=== PATIENT | female | born 1970 | race Caucasian/White ===

== ENCOUNTER 2017-04-05 06:51 | Day surgery (SDC) | payer OTHER, MEDICAID ==
[~2017-04-05] VITALS: Ht 167.6 cm; Wt 91.4 kg
[2017-04-05] VITALS (15 sets, daily range): BP systolic 133–210; BP diastolic 75–123; PULSE 76–101; RESP 1–17; O2SAT 65–99
[2017-04-05] MEDS: Clindamycin Inj 900 MG in IV Premix 1 EACH IV SCH ×2 (06:00→09:05)
[~2017-04-05 06:51] MED LIST: Bupivacaine Liposome 1.3% 20 mL Inj INFILTRATE ONE; FLUO40CA PO; KLO5T PO; Lactated Ringer's 1,000 ML IV ONE; OXCA300T51 PO; PRAZ2CAP2 PO; QUET400T PO; haldol; maxalt
[2017-04-05] MEDS ORDERED: Propofol 10,000 mCg/mL 20 mL Inj ONE (06:52)
[2017-04-05] MEDS ORDERED: Rocuronium 10 mg/mL 5 mL Inj ONE (06:52)
[2017-04-05] MEDS ORDERED: Ondansetron 2 mg/mL 2 mL Inj ONE (06:52)
[2017-04-05] MEDS ORDERED: Ketamine 10 mg/mL 20 mL Inj ONE (06:52)
[2017-04-05] MEDS ORDERED: fentaNYL-PF 50 mCg/mL 2 mL Inj ONE (06:52)
[2017-04-05] MEDS ORDERED: HYDROmorphone 1 mg/mL Inj ONE (06:52)
[2017-04-05] MEDS ORDERED: Dexamethasone 4 mg/mL Inj ONE (06:52)
[2017-04-05] MEDS ORDERED: Lactated Ringer's 1,000 ML IV ONE (07:29)
[2017-04-05] MEDS ORDERED: Lactated Ringer's 500 ML IV PRN (07:54)
[2017-04-05] MEDS ORDERED: Lactated Ringer's 1,000 ML IV SCH (07:54)
--- NOTE | 2017-04-05 07:54 | PCM.HPANE ---
Patient Data Surgeon Admitting Provider: Attending Provider:Sina Beckham MD Primary Care Physician:Raffy Moreland MD Other Provider:Marissa Stewartingham Anesthesia Reason for Visit Ventral Incisional Hernia VENTRAL INCISIONAL HERNIA Ht/WT & BMI Height (Feet): 5 Height (Inches): 6.00 Weight (Kilograms): 84.820 Body Mass Index 30.00 Allergies Coded Allergies: Penicillins (Verified Allergy, Unknown, 04/01/16) acetaminophen (Verified Allergy, Unknown, 04/01/16) codeine (Verified Allergy, Unknown, 04/01/16) divalproex sodium (Verified Allergy, Unknown, EXCESSIVE DROWSINESS, 04/01/16 ) hydrocodone (Verified Allergy, Unknown, 03/31/16) Past Anesthesia History Anesthesia History: Denies:: Abnormal Airway, Anesthesia Reactions, Difficult Intubation, Fam Anesthesia Reaction, Fam Malignant Hypertherm, Malignant Hyperthermia Diabetes History Hx Diabetes?: No MRSA MRSA: No Medications Hypertension Medication: No Home Meds Incl Beta Gloria: No Reported Medications [maxalt] No Conflict CheckUnknown Dose PRN migraine headaches 03/26/17 Prazosin 2 Mg Capsule2 Mg PO BID 03/26/17 Quetiapine Fumarate (Seroquel)400 Mg [id number] Mg PO BID Ref 0 03/26/17 Oxcarbazepine (Oxtellar Xr)300 Mg Tab.er.24h1,200 Mg PO HS 03/26/17 [haldol] No Conflict Check1 Mg DAILY MR X1 03/26/17 Fluoxetine 40 Mg [id number] Mg PO DAILY Ref 0 03/26/17 Clonazepam 0.5 Mg Tablet0.5 Mg PO TID PRN For Anxiety Ref 0 03/26/17 History History of ENT Problems?: No HEENT History: Denies:: Abnormal Airway Cataracts Difficult Intubation Dysphagia Glaucoma Hearing Problem Sinus Problem Denture Type: Full- Upper Full- Lower Teeth Condition: No Teeth Hx of Heart Problems?: No Cardiovascular History: Denies:: AICD Atrial Fibrillation Cardiac Surgery Chest Pain Congestive Heart Failure Coronary Artery Disease Edema Heart Murmur Hypertension Irregular Heartbeat Pacemaker Valvular Heart Disease Hx of Respiratory Problem?: Yes Respiratory History: Positive for:: Asthma (has had in past) Use of Inhalers / NEBS Denies:: COPD Emphysema Oxygen Administration Pneumonia Tuberculosis Use of C-PAP Machine (sleep study positive- cannot tolerate CPAP) Hx Neurologic Problems?: No Neurological History: Positive for:: Headaches (treats with Maxalt- occur every few months) Denies:: CVA Multiple Sclerosis Parkinson's Disease Seizures Hx of GI Problems?: Yes Other GI Pertinent History: ventral hernia current admission problem hx of sleeve gastrectomy, laparotomy for release of adhesions Hx of Problems?: No Genitourinary History: Denies:: Kidney Stones Urinary Tract Infection (frequent not current ) Female Hx: Denies:: Problems with Breasts? Skin History: Denies:: History Skin Disorders? Pressure Ulcers Hx Musculoskeletal Problems?: No Musculoskeletal History: Denies:: Degenerative Joint Fibromyalgia Joint Replacement Musculoskeletal Trauma Myasthenia Gravis Osteoarthritis Hx of Psycho/Social Problems?: Yes Psycho Social History: Positive for:: Anxiety (PTSD) Hx Depression Hx Surgeries?: Yes (HYSTERECTOMY, , APPY, GASTRIC SLEEVE) Hx Any Other Health Problems?: Yes Other History: Denies:: Cancer Thyroid Disease History Blood Transfusions: Positive for:: Accept Blood Products? 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) Smoking Status: Heavy Tobacco Smoker Have You Smoked inLast 12 mo: No (quit Mar 04, 2017- less than 1/2 pack day) Stop/Bang Treated for Sleep Apnea?: No Do You Have a CPAP Machine?: No S-Snoring: Do You Snore Loudly: No T-Tired: feel tired, fatigued: No O-Obsered: Observed not breath: No P-Blood Pressure: treated: No B- Body Mass Index > 35 kg/m2: No A- Age over 50: No N- Neck Large Circumference: No G- Gender Male: No CODIE Total Score: 0 CODIE Risk Assessment: Low Risk, <3 Yes Risk Assessment Category Category 1A: Patient has history of documented sleep apnea, and HAS NOT received any narcotic, sedative or anesthesia administration during this stay. Category 1B: Patient has history of documented sleep apnea, and HAS received any narcotic , sedative or anesthesia administration during this stay Category 2: Patient has SUSPECTED Obstructive Sleep Apnea, and HAS received any narcotic , sedative or anesthesia administration during this stay. Category 3: Patient has SUSPECTED Obstructive Sleep Apnea and HAS NOT received narcotic, sedative or anesthesia administration during this stay. Category 4: Outpatient in Procedural Areas with known sleep apnea or who screen positive for High Risk via the STOP/BANG questionnaire. Exam Exam Vital Signs Vital Signs Date Time Temp Pulse Resp B/P Pulse Ox O2 Delivery O2 Flow Rate FiO2 04/05/17 07:30 36 76 17 133/75 97 Room Air General Appearance: Alert, Oriented X3, Cooperative, No Acute Distress HEENT/AIRWAY: MP 2 Lungs: Clear to Auscultation, Normal Air Movement Heart: Exam Unremarkable, Regular Rate/Rhythm, No Murmurs/Rubs/Gallops Meds/Labs/Diagnostics Admission Meds Current Medications Lactated Ringer's (Lr) 1,000 ml @ ud STK-MED ONCE IV Last administered on 04/05t 07:29; Start 04/05/17 at 07:29; Stop 04/05/17 at 07:30; Status DC Plan Impression Patient chart reviewed, patient interviewed and anesthestic plan with risks, benefits, and alternatives discussed, and informed consent obtained. NPO per Anesth. Guidelines: Yes (hx substance abuse) ASA Physical Status: ASA3 Severe Disease Anesthetic Plan: GA Bene/Risks/Altern/Consents: Yes HP Complete Prior to Induction: Yes Joe Huntley MD Apr 05, 2017 07:54
[2017-04-05] MEDS ORDERED: EPHEDrine Sulfate 50 mg/mL Inj IVPUSH PRN (07:55)
[2017-04-05] MEDS ORDERED: MetoCLOpramide 5 mg/mL 2 mL Inj IVPUSH PRN ×2 (07:55→11:35)
[2017-04-05] MEDS ORDERED: Phenylephrine 10,000 mCg/mL Inj IVPUSH PRN (07:55)
[2017-04-05] MEDS ORDERED: Ondansetron 2 mg/mL 2 mL Inj IVPUSH PRN ×2 (07:55→11:35)
[2017-04-05] MEDS ORDERED: Dexamethasone 4 mg/mL Inj IVPUSH PRN (07:55)
[2017-04-05] MEDS ORDERED: Bupivacaine-MPF 0.5% 30 mL Inj INFILTRATE ONE (09:05)
--- NOTE | 2017-04-05 11:27 | PCM.SURGOP ---
Surgical Operative Report Date of Service: Apr 05, 2017 Pre Operative Diagnosis Incarcerated ventral incisional hernia Post Operative Diagnosis Same Procedure: Ventral incisional hernia repair with mesh Surgeon and Real Estate Processor: Surgeon: Sina Beckham MD Assistants: Angela Rojo MD PGY-4 Indication for Procedure 47-year-old woman who has undergone prior section, appendectomy, sleeve gastrectomy, and laparotomy with lysis of adhesions. She was previously seen by me for bulging of the lower abdominal wall, without obvious evidence of a hernia. She was also smoking at that time. A subsequent CT scan of the abdomen and pelvis on November 11, 2016 showed a lower abdominal wall ventral hernia containing bowel with a fascial defect measuring 3 x 7 cm. She was increasingly symptomatic. She successfully quit smoking 1 month ago. After discussion of risks and benefits, she agreed to proceed with ventral incisional hernia repair with mesh. Findings: The fascial defect after skeletonization and incorporation of a tiny umbilical defect measured 14 cm craniocaudal by 12 cm transverse, repaired with the 20 x 15 cm Bard Ventralight mesh. Procedure Details After smooth induction of general endotracheal anesthesia, she was placed in the supine position with both arms out. She was prepped and draped in wide sterile fashion. A procedural pause was performed according to the SCOAP checklist, and all were found to be in agreement. Her prior infraumbilical midline incision was reopened sharply. Dissection was carried through the superficial subcutaneous tissue, which had extensive scarring. Ultimately, the hernia contents were encountered, which were incarcerated, quite densely. Adhesions were taken down until the fascia could be skeletonized. The hernia sac was excised and discarded. Just cephalad from the main defect, at the umbilicus, there was a tiny defect measuring less than 1 cm in diameter. This was incorporated by excising the fascia, created one single fascial defect. Once this was done, the fascial defect was measured, which was 14 cm craniocaudal by 12 cm transverse. Intra-abdominal adhesions were taken down to the anterior abdominal wall to the level of the anterior axillary line. There were no other fascial defects. A repair was then performed using the Bard Ventralight 20 x 15 cm mesh. This was secured as an underlay using a series of interrupted 0 Prolene transfascial sutures. Gaps between sutures were no more than 1 cm. Once this was accomplished, the midline fascia was able to be reapproximated over the mesh. The fascia was closed with interrupted 0 Prolene sutures in [id number]. The subcutaneous space was irrigated and suctioned. A 19 Pakistani TITO drain was brought out through the right lower quadrant, and secured to the skin with a 2-0 nylon stitch. The drain was positioned over the fascial closure in the subcutaneous space. The umbilicus was resuspended the fascia with a 3-0 Vicryl suture. The subcutaneous tissue was closed with interrupted 3-0 Vicryl sutures. The skin incision was closed with a running 4-0 Monocryl subcuticular stitch. Steri-Strips and sterile dressings were applied. At the end of the case all needle and sponge counts were correct 2. The patient was awakened from anesthesia without difficulty, and taken to the recovery room in satisfactory condition, having tolerated the procedure well. Complications There were no periprocedural complications identified. Surgical Specimen Removed: No Specimen sent to Pathology: Not applicable Anesthetic Plan: GA Grafts, Implants: Implants-See Implant Record Output, Estimated Blood Loss: 50 Blood Administration during garber: No Drains: TITO Drain #1 Catheters: None copies to: Raffy Moreland MD, Joshua D MD Apr 05, 2017 11:26
[2017-04-05] MEDS ORDERED: Polyethylene Glycol (PEG) 17 Gm Powder PO PRN (11:35)
[2017-04-05] MEDS ORDERED: HYDROmorphone 0.5 mg/0.5 mL iSecure Syringe ONE ×2 (11:46→11:51)
[2017-04-05] MEDS ORDERED: HYDROmorphone 1 mg/mL Inj IVPUSH PRN (11:50)
[2017-04-05] MEDS: fentaNYL-PF 50 mCg/mL 2 mL Inj IVPUSH PRN ×2 (11:51→12:09)
--- NOTE | 2017-04-05 12:45 | PCM.ANEP1 ---
Post Anesthesia PACU Phase 1 Assessment Vital Signs Vital Signs Date Time Temp Pulse Resp B/P Pulse Ox O2 Delivery O2 Flow Rate FiO2 04/05/17 12:30 100 15 159/95 96 Nasal Cannula 2 04/05/17 12:15 36.1 96 15 156/98 97 Nasal Cannula 2 04/05/17 12:00 98 12 177/102 98 Simple Mask 8 04/05/17 11:55 96 9 188/99 99 Simple Mask 8 04/05/17 11:50 94 10 186/97 98 Simple Mask 8 04/05/17 11:38 37.0 95 10 175/98 98 Simple Mask 8 04/05/17 07:30 36 76 17 133/75 97 Room Air Anesthetic Administered: GA Level of Alertness: Awake, talking ARSHAD's with Equal Strength: Yes Pain: No Nausea or Vomiting: No CV Function & Hydration Stable: Yes Airway Device: none Lungs: Clear to Auscultation, Normal Air Movement PACU Phase 2 Assessment Complications: No Follow up Care: No Patient Instructions Provided: N/A Joe Huntley MD Apr 05, 2017 12:45
[2017-04-05] MEDS: HYDROmorphone 1 mg/mL Inj IVPUSH PRN ×2 (13:58→19:56)
[2017-04-05] MEDS: Senna-Docusate 8.6-50 mg Tablet PO SCH (20:03)
[2017-04-05] MEDS: Alum-Mag Hydrox-Simeth 30 mL Suspension PO PRN (20:32)
[2017-04-06] MEDS: Alum-Mag Hydrox-Simeth 30 mL Suspension PO PRN ×2 (04:11→13:41)
[2017-04-06 05:00] VITALS: BP 149/81; PULSE 89; RESP 17; O2SAT 97
--- NOTE | 2017-04-06 07:35 | PCM.PNSURG ---
Subjective Date of Service: Apr 06, 2017 Date of Service: Apr 06, 2017 Visit Information: Reason for Visit Ventral Incisional Hernia Surgery/Surgery Date HERNIA REPAIR 04/05/17 Post-Op Day # 1 Date of Admission: Apr 05, 2017 at 13:46 Hospital Day # 1 Subjective: Yeny feels okay this morning but is still having a lot of pain. She has multimodal therapy for pain control. Tolerating a diet. Ambulating to void. Initially had a bladder with 900cc on bladder scan last night but voided immediately after scan and has been empyting without retention. No acute events overnight and vital signs stable. Objective Vital Sign- Last 8 Hours Date Time Temp Pulse Resp B/P Pulse Ox O2 Delivery O2 Flow Rate FiO2 04/06/17 05:00 36.6 89 17 149/81 97 Room Air 04/05/17 23:47 37.2 97 17 134/85 95 Room Air Intake and Output- Last 8 Hour 04/06/17 Cumulative From/Thru 07:00 03/26/17 12:17 - 04/06/17 05:54 Intake Total 1100 ml 4570 ml Output Total 1270 ml 2240 ml Balance -170 ml 2330 ml Intake Oral 1100 ml 1820 ml IV Total 2750 ml Output Urine Total 1250 ml 1950 ml Drainage Total 20 ml 190 ml Estimated Blood Loss 100 ml # Bowel Movements 0 0 General: Alert, Oriented X3, Cooperative, No Acute Distress Lungs: Normal Air Movement Heart: Regular Rate/Rhythm Abdomen: Soft, Appropriately tender, Non-distended Catheters: None Assessment & Plan Impression 47 year old female with symptomatic ventral incisional hernia s/p open ventral incisional hernia repair with mesh. Problems: Plan NEURO: IV toradol, scheduled tylenol, prn oxycodone 5-10 mg. Need to work on improved pain control before safe for discharge. Required IV dilaudid overnight , will try without today. CV/P: No acute issues. PSYCH: Resume home medications. FEN/GI: Regular diet. Oral hydration. Anti emetics prn (not using). TITO drain to bulb suction. RENAL: Voiding independently. DISPO: Discharge tomorrow morning. Need to optimize pain control today. Attending Statement: I have seen and examined the patient, and agree with the assessment and plan as outlined above. We will re-evaluate this afternoon. If she is better from a pain standpoint, she can go home. If not, she will stay another night and go home tomorrow. Angela Rojo MD Apr 06, 2017 07:35 Sina Beckham MD Apr 06, 2017 16:58
[2017-04-06] MEDS: Senna-Docusate 8.6-50 mg Tablet PO SCH ×2 (08:25→20:07)
[2017-04-06 09:21] VITALS: BP 125/74; PULSE 101; RESP 18; O2SAT 92
[2017-04-06 14:32] VITALS: BP 155/93; PULSE 93; RESP 18; O2SAT 95
[2017-04-06] MEDS ORDERED: HYDROmorphone 0.5 mg/0.5 mL iSecure Syringe IVPUSH PRN (18:55)
[2017-04-06 19:42] VITALS: BP 169/104; PULSE 95; RESP 17; O2SAT 96
[2017-04-06] MEDS ORDERED: OXCARBAZEPINE 600 MG PO SCH (21:00)
[2017-04-06 21:31] VITALS: BP 99/64
[2017-04-07] MEDS: OXcarbazepine 300 mg Tablet PO SCH ×2 (00:35→08:31)
[2017-04-07 04:30] VITALS: BP 138/90; PULSE 81; RESP 17; O2SAT 92
--- NOTE | 2017-04-07 07:12 | PCM.DISURG ---
Surgical Discharge Instruction Date of Service Apr 07, 2017 Dates of Hospitalization Date of Hospital Admission Providers Admitting Physician: Primary Care Physician: Raffy Moreland MD Attending Physician: Sina Beckham MD Discharge Diagnosis Discharge Diagnosis ventral incisional hernia Post Operative diagnosis Same Diet Discharge Diet: No restrictions Activity Discharge Activity-General: No lifting >10 pounds for 4-6 weeks Dressing and Incisional Care Dressing Care: Allow Steri Stripes to fall off Hygiene: May shower Additional Instructions Discharge Instructions Empty TITO drain and record output daily, or more frequently as needed. Call the surgery clinic when drain output is less than 30mL in 24 hours for 2 consecutive days, and the drain can be removed at that time. Follow Up Plan Follow Up Plan in the [facility] clinic in 2-3 weeks for a postoperative check. Call your provider for: Fever (over 101.5F), Vomiting, Discharge @ incision, pus discharge Sina Beckham MD Apr 07, 2017 07:12
[2017-04-07] MEDS ORDERED: POLY17PO6 PO (07:13)
[2017-04-07] MEDS ORDERED: OXYC-530 PO (07:13)
[2017-04-07] MEDS: Senna-Docusate 8.6-50 mg Tablet PO SCH (08:32)
[2017-04-07 09:13] VITALS: BP 89/61; PULSE 113; RESP 18; O2SAT 95
--- NOTE | 2017-04-07 09:32 | PCM.PNSURG ---
Subjective Date of Service: Apr 07, 2017 Date of Service: Apr 07, 2017 Visit Information: Reason for Visit Ventral Incisional Hernia Surgery/Surgery Date HERNIA REPAIR 04/05/17 Post-Op Day # 2 Date of Admission: Hospital Day #2 Subjective: Feels well this morning. Pain controlled. Ready to go home. Tolerating diet, no N/V. Objective Vital Sign- Last 8 Hours Date Time Temp Pulse Resp B/P Pulse Ox O2 Delivery O2 Flow Rate FiO2 04/07/17 09:13 36.6 113 18 89/61 95 Room Air 04/07/17 04:30 36.8 81 17 138/90 92 Room Air Intake and Output- Last 8 Hour 04/07/17 Cumulative From/Thru 07:00 03/26/17 12:17 - 04/07/17 05:37 Intake Total 1270 ml 6710 ml Output Total 980 ml 5670 ml Balance 290 ml 1040 ml Intake Oral 1270 ml 3960 ml IV Total 2750 ml Output Urine Total 950 ml 5200 ml Drainage Total 30 ml 370 ml Estimated Blood Loss 100 ml # Bowel Movements 0 0 General: Alert, Oriented X3, No Acute Distress Lungs: Normal Air Movement Heart: Regular Rate/Rhythm, Normal S1 Abdomen: Soft, Appropriately tender, Other (Dressings are c/d/i. TITO bulb to suction with serosanguinous output.) Assessment & Plan Impression 47 year old female with symptomatic ventral incisional hernia s/p open ventral incisional hernia repair with mesh. Problems: Plan NEURO: Scheduled tylenol and ibuprofen, prn oxycodone 5-10 mg. CV/P: No acute issues. PSYCH: Home medications. FEN/GI: Regular diet. Oral hydration. TITO drain to bulb suction - teaching completed and patient demonstrates ability to drain and record output. RENAL: Voiding independently. DISPO: Discharge home today. Angela Rojo MD Apr 07, 2017 09:32
--- NOTE | 2017-04-07 17:13 | PCM.DC.SUR ---
Discharge Summary Date of Service: Apr 07, 2017 Date of Hospital Admission: Apr 05, 2017 Date of Operation(s): Apr 05, 2017 Date of Discharge: Apr 07, 2017 at 10:15 Diagnosis at Time of Discharge ventral incisional hernia Problems: Operation ventral incisional hernia repair with mesh Brief History and Physical: 47-year-old woman who has undergone prior section, appendectomy, sleeve gastrectomy, and laparotomy with lysis of adhesions. She was previously seen by me for bulging of the lower abdominal wall, without obvious evidence of a hernia. She was also smoking at that time. A subsequent CT scan of the abdomen and pelvis on November 11, 2016 showed a lower abdominal wall ventral hernia containing bowel with a fascial defect measuring 3 x 7 cm. She was increasingly symptomatic. She successfully quit smoking 1 month ago. After discussion of risks and benefits, she agreed to proceed with ventral incisional hernia repair with mesh. Physical exam: Vital Sign- Last 8 Hours Date Time Temp Pulse Resp B/P Pulse Ox O2 Delivery O2 Flow Rate FiO2 04/07/17 09:13 36.6 113 18 89/61 95 Room Air 04/07/17 04:30 36.8 81 17 138/90 92 Room Air Intake and Output- Last 8 Hour 04/07/17 Cumulative From/Thru 07:00 03/26/17 12:17 - 04/07/17 05:37 Intake Total 1270 ml 6710 ml Output Total 980 ml 5670 ml Balance 290 ml 1040 ml Intake Oral 1270 ml 3960 ml IV Total 2750 ml Output Urine Total 950 ml 5200 ml Drainage Total 30 ml 370 ml Estimated Blood Loss 100 ml # Bowel Movements 0 0 General: Alert, Oriented X3, No Acute Distress Lungs: Normal Air Movement Heart: Regular Rate/Rhythm, Normal S1 Abdomen: Soft, Appropriately tender, Other (Dressings are c/d/i. TITO bulb to suction with serosanguinous output.) Consultants: None Hospital Course: The patient was admitted to the hospital for a scheduled ventral hernia repair with mesh. She was taken to the operating room for the procedure which she tolerated well. Please refer to the operative report for details of the procedure. A abdominal drain was placed intraoperatively adjacent to the repair site which remained during her hospital stay and after her discharge from the hospital. She was then transferred to her hospital room where she remained for the balance of her hospital stay. On postoperative day number 1 she was noted to have continued pain issues requiring multimodal therapy. On postoperative day 2 she was then exhibiting good pain control, was tolerating oral feedings and was without evidence of infection, bleeding or surgical repair problems. She was then discharged to her home in stable condition with her surgical drain in place. Plans were put in place for her to record drain output and advise the surgical office when drain output had reduced to then have drain removed. Pathology: None. Disposition: Stable to home. Follow-up Plan: Follow up in general surgery office for a postoperative check in approximately 2 weeks. She is to contact office when leandro-white drain output had reduced to less than 30mL over 24 hours for 2 days to then have drain removed. ([haldol]) 1 MG DAILY (Reported) MR X1 ([maxalt]) Unknown Dose PRN migraine headaches (Reported) Clonazepam (Clonazepam) 0.5 Mg Tablet 0.5 MG PO TID PRN PRN For Anxiety ( Reported) Fluoxetine (Fluoxetine) 40 Mg Capsule 40 MG PO DAILY (Reported) Oxcarbazepine (Oxtellar Xr) 300 Mg Tab.er.24h 1,200 MG PO HS (Reported) Polyethylene Glycol 3350 (Miralax) 17 Gm Powd.pack 17 GM PO DAILY PRN PRN For Constipation Prazosin (Prazosin) 2 Mg Capsule 2 MG PO BID (Reported) Quetiapine Fumarate (Seroquel) 400 Mg Tablet 400 MG PO BID (Reported) oxyCODONE (oxyCODONE) 5 Mg Tablet 5-10 MG PO Q4H PRN PRN For Severe Pain copies to: Raffy Mroeland MD, Samuel L PA-C Apr 07, 2017 17:13
== END 2017-04-07 10:15 | disposition home or self-care (01) ==
LOC: SAS 06:51 → UNDOADMIN 13:46 → OSC 13:46 → SAS 04-07 10:15
PROVIDERS: ATTEND Student in an Organized Health Care Education/Training Program
DX: K43.0 Incisional hernia with obstruction, without gangrene (principal); J45.909 Unspecified asthma, uncomplicated; R51 Headache; F41.9 Anxiety disorder, unspecified; F43.10 Post-traumatic stress disorder, unspecified; F17.210 Nicotine dependence, cigarettes, uncomplicated; Z79.899 Other long term (current) drug therapy

== ENCOUNTER 2017-04-17 18:24 | Inpatient (IN) | payer OTHER, MEDICAID ==
[~2017-04-17] VITALS: Ht 165.1 cm; Wt 85.6 kg
[~2017-04-17 18:24] MED LIST changes: -Bupivacaine Liposome 1.3% 20 mL Inj INFILTRATE ONE; -Lactated Ringer's 1,000 ML IV ONE; +OXYC-530 PO; +POLY17PO6 PO
[2017-04-17 18:48] VITALS: BP 152/98; PULSE 105; RESP 12; O2SAT 95
[2017-04-17 19:37] LABS: BASOPHILS % (AUTO) 0.2 % (0-3); MONOCYTES % (AUTO) 5.5 % (4-12); Mean Corpuscular Hemoglobin 32.2 pg (27.0-35.0); Mean Corpuscular Volume 90.2 fL (81-100); NEUTROPHILS % (AUTO) 71.5 % (40-74); Platelet Count 348 bil/L (150-400)
--- NOTE | 2017-04-17 19:38 | ED.REPORT ---
HPI-General Illness Date of Service Apr 17, 2017 ED Provider: Silverio Marsh MD The pt is 47 y/o female with hx of depression, anxiety, and recent hernia repair on 04/05/17 who presents to the ED complaining of abdominal pain onset 0330 morning. The abdominal pain is described as a "tightness" that has worsened since onset and is now rated at 8/10 in severity. It is located above her surgical incision and drain, which is still in place. Heat seems to alleviate some pain, but pain medication did not. The pt reports that her pain had been improving following the surgery, but worsened suddenly this morning. She also states that this is a "different type of pain" than that she had been experiencing before. Associated symptoms include nausea and diarrhea. She denies chills, fever, sore throat, cough, chest pain, vomiting, pelvic pain, itchiness, hematemesis, hematochezia, hematuria or slurred speech. Nursing Notes Stated Complaint: POST OPERATIVE ABDOMINAL PAIN, DOS 04/05/17 Chief Complaint: Female Abdominal Pain Nursing Notes Reviewed: Yes Allergies: Coded Allergies: Penicillins (Verified Allergy, Unknown, 04/01/16) acetaminophen (Verified Allergy, Unknown, 04/01/16) codeine (Verified Allergy, Unknown, 04/01/16) divalproex sodium (Verified Allergy, Unknown, EXCESSIVE DROWSINESS, 04/01/16 ) hydrocodone (Verified Allergy, Unknown, 03/31/16) Scheduled ([haldol]) 1 MG DAILY MR X1 Fluoxetine (Fluoxetine) 40 Mg Capsule 40 MG PO DAILY Oxcarbazepine (Oxtellar Xr) 300 Mg Tab.er.24h 1,200 MG PO HS Prazosin (Prazosin) 2 Mg Capsule 2 MG PO BID Quetiapine Fumarate (Seroquel) 400 Mg Tablet 400 MG PO BID Scheduled PRN ([maxalt]) Unknown Dose PRN migraine headaches Clonazepam (Clonazepam) 0.5 Mg Tablet 0.5 MG PO TID PRN PRN For Anxiety Polyethylene Glycol 3350 (Miralax) 17 Gm Powd.pack 17 GM PO DAILY PRN PRN For Constipation oxyCODONE (oxyCODONE) 5 Mg Tablet 5-10 MG PO Q4H PRN PRN For Severe Pain General Time Seen by MD: 22:00 Chief Complaint Abdominal pain Hx Obtained From: Patient Arrived By: Walk-in Sudden in Onset?: Yes Onset Occurred: 17 - 20 hours ago Symptom Duration: Since onset Location: : Abdomen Quality: Painful Severity: Current: Pain level 8 out of 10 Severity: Maximum: Pain level 8 out of 10 Recent Healthcare: No recent hospitalization, Recent doctor visit Similar Sx Previous: Yes Past Medical History Past Medical History asthma UTI anxiety PTSD depression Past Surgical History gastric sleeve hysterectomy hernia repair 04/05/2017 Smoking History Former Smoker (cessation since Feb) Social History Alcohol Use: Denies alcohol use Drug Use: Denies drug use Other Social History: Good social support Ambulatory Status Independent Review of Systems Full Review of Systems Constitutional: Denies: Chills, Fever Eyes: Denies: Blurred bilateral Ears / Nose / Throat: Denies: Sore throat Respiratory: Denies: Non-productive cough Cardiovascular: Denies: Chest pain GI: Reports: Abdominal pain, Diarrhea, Nausea, Denies: Hematemesis, Hematochezia, Vomiting Female: Denies: Hematuria, Pelvic pain Skin: Denies Itching, Denies Rash Allergy / Immune: Denies: Itching Neurologic: Denies: Headache, Slurred speech Psychiatric: Denies: Change mental status Complete sys rev & neg: except as marked. Physical Exam Constitutional: Well-developed, well-nourished. Not diaphoretic. Head: Normocephalic and atraumatic. Mouth/Throat: Oropharynx is clear and moist. No oropharyngeal exudate. Eyes: EOM are normal. Pupils are equal, round, and reactive to light. Neck: Supple, no tracheal deviation. Cardiovascular: Normal rate, regular rhythm. Equal and intact distal pulses throughout. Pulmonary/Chest: Effort normal and breath sounds normal. No respiratory distress. Abdominal: TITO drain looks to be clean, dry, and intact; serosanguineous fluid in drain; surgical wound appears to be healing well with no surrounding erythema ; diffuse abdominal tenderness without focal tenderness, no rebound, no guarding. Musculoskeletal: Range of motion grossly intact, moving all extremities. No edema or tenderness appreciated. Neurological: AOx3. Grossly nonfocal exam. Strength and sensation intact and equal to bilateral upper and lower extremities. Skin: Warm and dry, no rashes or pallor appreciated. Psychiatric: Appropriate mood and affect. Behavior appears normal. Vital Signs Vital Signs Date Time Temp Pulse Resp B/P Pulse Ox O2 Delivery O2 Flow Rate FiO2 9/23/17 18:48 36.6 105 12 152/98 95 Room Air Initial VS: Reviewed Interpretation & Diagnostics Lab Results Interpretation Result Diagram: 04/17/17192604/17/171926 Test 04/17/17 19:27 White Blood Count 12.5th/mm3 (3.8-10.1) Red Blood Count 4.50mil/mm3 (3.90-5.20) Hemoglobin 14.5g/dL (12.0-15.6) Hematocrit 40.6% (35.0-46.0) Mean Corpuscular Volume 90.2fL (81-100) Mean Corpuscular Hemoglobin 32.2pg (27.0-35.0) Mean Corpuscular Hemoglobin Concent 35.7% (32.0-37.0) Red Cell Distribution Width 13.5% (12.3-15.4) Platelet Count 348bil/L (150-400) Neutrophils (%) (Auto) 71.5% (40-74) Lymphocytes (%) (Auto) 20.6% (14-46) Monocytes (%) (Auto) 5.5% (4-12) Eosinophils (%) (Auto) 2.0% (0-5) Basophils (%) (Auto) 0.2% (0-3) Sodium Level 137mEq/L (134-144) Potassium Level 4.0mEq/L (3.5-5.2) Chloride Level 99mEq/L (97-108) Carbon Dioxide Level 24mmol/L (18-29) Blood Urea Nitrogen 10mg/dL (6-24) Creatinine 0.54mg/dL (0.57-1.00) Estimat Glomerular Filtration Rate 173mL/min (>59) Glucose Level 138mg/dL (60-99) Calcium Level 9.2mg/dL (8.5-10.1) Magnesium Level 1.8mg/dL (1.6-2.6) Total Bilirubin 0.2mg/dL (0.0-1.2) Aspartate Amino Transf (AST/SGOT) 12U/L (0-50) Alanine Aminotransferase (ALT/SGPT) 12U/L (0-32) Alkaline Phosphatase 83U/L (25-150) Total Protein 7.3g/dL (6.4-8.4) Albumin 4.3g/dL (3.4-5.0) Lipase 29U/L (13-60) Hold Canseco Top Tube Received (Received) CT Abd / Pelvis Interpretation 1. Approximate [id number] rim-enhancing fluid collection in the anterior pelvis abutting the peritoneal wall is most consistent with an abscess. There is a drainage catheter in the ventral pelvic body wall fat but no rim-enhancing fluid collection identified in that location. 2. Secondary peritonitis causing lleus/enteritis a few pelvic small bowel loops. 3. No free air or pneumatosis intestinalis. Study type: Abdom CT oral contrast Re-Eval/Medical Decision Med Decision/Clinical Course In summary, 47-year-old female presenting to the ED for evaluation of worsening abdominal pain in the setting of recent hernia repair. Differential includes wound dehiscence, intra-abdominal abscess, peritonitis, bowel perforation, mesh infection, etc. Patient is afebrile, nontoxic appearing. Vital signs on my evaluation grossly within normal limits; mildly tachycardic in triage, however this resolved upon my evaluation. CBC and CMP grossly within normal limits with the exception of a white blood cell count of 12.5. Consulted with general surgery as per below; appreciated their involvement. CT scan of the patient's abdomen and pelvis demonstrates an intra-abdominal abscess. After discussion with the surgery service, plan admission for further management and evaluation, likely IV antibiotics and return to the OR. Discussed plan with patient. She was agreeable to the plan as stated, no further questions. Source of Hx: Old records Time of Eval: 22:25 Re-Evaluation/Progress Note: Pt rechecked. Informed pt of diagnosis and plan for admission. The pt understands and agrees with plan for admission. All questions addressed at this time. Consultation : Referral / Consult Name: You Colin MD Call Returned at: 22:41 Toe Sewer: Will see patient, Agrees with eval, Agrees with plan, Accepts admit Note: Consulted with Dr. Colin, surgeon, regarding pt's case. Dr. Colin agrees with the evaluation and agrees to admit the pt for surgery. Counseled Regarding: Diagnosis, Lab results, Need for admission Discharge & Departure Primary Impression: Intra-abdominal abscess post-procedure Encounter type: initial encounter Qualified Code: T81.4XXA - Infection following a procedure, initial encounter Disposition: ADMITTED TO HOSPITAL Referrals: Raffy Moreland MD (PCP) Scribe Attestation Portions of this note were transcribed by Devyn Alberto and Anjelica Carmona. I, Dr. Silverio Marsh personally performed the history, physical exam and medical decision-making; I reviewed and confirmed the accuracy of the information in the transcribed note. Signed by: Devyn Alberto and Sydnie Martinez, 04/17/17. copies to: Raffy Moreland MD, William B MD Apr 17, 2017 19:38 Devyn Alberto Apr 17, 2017 21:38 ANJELICA CARMONA Apr 17, 2017 23:47
[2017-04-17 20:01] LABS: Magnesium 1.8 mg/dL (1.6-2.6)
[2017-04-17] MEDS ORDERED: HYDROmorphone 0.5 mg/0.5 mL iSecure Syringe IVPUSH ONE (21:35)
--- NOTE | 2017-04-17 22:07 | PCM.CONSUR ---
Subjective Date of Service: Apr 17, 2017 History of Present Illness Yeny Moreno is a 47 year old female known to the General Surgery service who underwent a ventral incisional hernia repair on 04/05/[address] Granados and discharged home on 04/07/2017 with a TITO drain. She was seen in clinic on Wednesday this week because she thought her TITO drain could be removed but it needed a little longer. She has had two consecutive days now of 25cc/24hrs in the drain, just serosanguinous fluid. She denies any drainage from her midline abdominal wound. She is still using oxycodone and aleve but has stopped taking tylenol.She reports that she had been doing well until waking up this morning with worse band like epigastric discomfort with associated chills and nausea. She reports subjective fevers but has been taking her temperature without it rising above 99 degrees F. She has been tolerating a regular diet but her appetite was slightly less today given the increased pain. Because her pain changed today she presented to the ED for further evaluation. On arrival, she is afebrile, non tachycardic, normotensive, and has a mildly elevated WBC of 12.5. Her midline incision is well healed and intact without concerns for dehiscence, drainage, cellulitis or erythema. General Surgery was consulted for additional recommendations given the benign appearance of her wound and abdominal exam with isolated mild leukocytosis. A CT scan was ordered demonstrating . Reason for Consultation Abdominal pain Allergy Allergies: Coded Allergies: Penicillins (Verified Allergy, Unknown, 04/01/16) acetaminophen (Verified Allergy, Unknown, 04/01/16) codeine (Verified Allergy, Unknown, 04/01/16) divalproex sodium (Verified Allergy, Unknown, EXCESSIVE DROWSINESS, 04/01/16 ) hydrocodone (Verified Allergy, Unknown, 03/31/16) Medications ([haldol]) 1 MG DAILY (Reported) MR X1 ([maxalt]) Unknown Dose PRN migraine headaches (Reported) Clonazepam (Clonazepam) 0.5 Mg Tablet 0.5 MG PO TID PRN PRN For Anxiety ( Reported) Fluoxetine (Fluoxetine) 40 Mg Capsule 40 MG PO DAILY (Reported) Oxcarbazepine (Oxtellar Xr) 300 Mg Tab.er.24h 1,200 MG PO HS (Reported) Polyethylene Glycol 3350 (Miralax) 17 Gm Powd.pack 17 GM PO DAILY PRN PRN For Constipation Prescribed by: TACOS GRANADOS MD Prazosin (Prazosin) 2 Mg Capsule 2 MG PO BID (Reported) Quetiapine Fumarate (Seroquel) 400 Mg Tablet 400 MG PO BID (Reported) oxyCODONE (oxyCODONE) 5 Mg Tablet 5-10 MG PO Q4H PRN PRN For Severe Pain Prescribed by: TACOS GRANADOS MD Past Surgical History Patient/Family Past Surgical: Denies:: Accept Blood Products?, Anesthesia Reactions, Blood Transfuse Reaction, Blood Transfusions, Malignant Hyperthermia Additional Information section, appendectomy, sleeve gastrectomy, laparotomy with lysis of adhesions, and ventral incisional hernia repair with mesh. Social History Hx Alcohol Use: No Hx Substance Use: No Hx Tobacco Use: Yes (quit 2 months ago for surgery.) PMH HEENT History History of ENT Problems?: No HEENT History: Denies:: Abnormal Airway Cataracts Difficult Intubation Dysphagia Hearing Problem Sinus Problem Cardiovascular History History of Heart Problems?: No Cardiovascular History: Denies:: AICD Atrial Fibrillation Cardiac Surgery Chest Pain Congestive Heart Failure Edema Heart Murmur Hypertension Irregular Heartbeat Pacemaker Valvular Heart Disease Respiratory History of Respiratory Problem: Yes Respiratory History: Positive for:: Asthma (has had in past) Denies:: COPD Emphysema Oxygen Administration Pneumonia Tuberculosis Use of C-PAP Machine (sleep study positive- cannot tolerate CPAP) Neurological History Hx Neurologic Problems?: No Neurological History: Positive for:: Headaches (treats with Maxalt- occur every few months) Denies:: CVA Multiple Sclerosis Parkinson's Disease Seizures Gastrointestinal History HX of GI Problems?: Yes Gastrointestinal History: Denies:: Cirrhosis Diverticulitis Gastroesphageal Reflux Heartburn Hiatal Hernia Rectal Bleeding Genitourinary History Hx of Gu Problems?: No Genitourinary History: Denies: Kidney Stones Urinary Tract Infection (frequent not current ) Female/Male History Reproductive History Female: Denies: Problems with Breasts? Skin History Skin History: Denies:: History Skin Disorders? Pressure Ulcers Musculoskeletal History Hx Musculoskeletal Problems?: No Musculoskeletal History: Denies:: Degenerative Joint Joint Replacement Musculoskeletal Trauma Psycho Social History Hx of Psycho/Social Problems?: Yes Psycho Social History: Positive for:: Anxiety (PTSD) Hx Depression Other History Hx Any Other Health Problems?: Yes Other History: Denies:: Cancer Thyroid Disease Diabetes: No Social History Hx Alcohol Use: NoHx Substance Use: No Smoking Status: Heavy Tobacco Smoker Objective Exam Vital Signs & I/O Vital Sign- Last 8 Hours Date Time Temp Pulse Resp B/P Pulse Ox O2 Delivery O2 Flow Rate FiO2 04/17/17 18:48 36.6 105 12 152/98 95 Room Air Lab & Micro Results Laboratory Tests Test 04/17/17 19:27 White Blood Count 12.5th/mm3 (3.8-10.1) Red Blood Count 4.50mil/mm3 (3.90-5.20) Hemoglobin 14.5g/dL (12.0-15.6) Hematocrit 40.6% (35.0-46.0) Mean Corpuscular Volume 90.2fL (81-100) Mean Corpuscular Hemoglobin 32.2pg (27.0-35.0) Mean Corpuscular Hemoglobin Concent 35.7% (32.0-37.0) Red Cell Distribution Width 13.5% (12.3-15.4) Platelet Count 348bil/L (150-400) Neutrophils (%) (Auto) 71.5% (40-74) Lymphocytes (%) (Auto) 20.6% (14-46) Monocytes (%) (Auto) 5.5% (4-12) Eosinophils (%) (Auto) 2.0% (0-5) Basophils (%) (Auto) 0.2% (0-3) Sodium Level 137mEq/L (134-144) Potassium Level 4.0mEq/L (3.5-5.2) Chloride Level 99mEq/L (97-108) Carbon Dioxide Level 24mmol/L (18-29) Blood Urea Nitrogen 10mg/dL (6-24) Creatinine 0.54mg/dL (0.57-1.00) Estimat Glomerular Filtration Rate 173mL/min (>59) Glucose Level 138mg/dL (60-99) Calcium Level 9.2mg/dL (8.5-10.1) Magnesium Level 1.8mg/dL (1.6-2.6) Total Bilirubin 0.2mg/dL (0.0-1.2) Aspartate Amino Transf (AST/SGOT) 12U/L (0-50) Alanine Aminotransferase (ALT/SGPT) 12U/L (0-32) Alkaline Phosphatase 83U/L (25-150) Total Protein 7.3g/dL (6.4-8.4) Albumin 4.3g/dL (3.4-5.0) Lipase 29U/L (13-60) Hold Canseco Top Tube Received (Received) Result Diagram: 04/17/17192604/17/171926 Review of Systems: A 14 point review of systems was performed and otherwise negative except as mentioned in HPI. H&P Surgical Exam Exam General: Alert, Oriented X3, Cooperative, No Acute Distress HEENT: Mucous membranes moist and pink Respiratory: Clear to Auscultation (Breathing comfortably on room air) Cardiac: Regular Rate/Rhythm Abdomen: Other (Midline incision well healed without erythema, cellulitis or palpable fluctuance or areas of dehiscence, non tender to palpation. Mild tenderness in the mid epigastrium. Hypoactive bowel sounds. No rebound, guarding or rigidity appreciated, not peritoneal.) Additional Information CT Abdomen/Pelvis: Approximate [id number] rim enhancing fluid collection consistent with abscess in the anterior pelvis posterior to the mesh. Drainage catheter is anterior to the mesh with no associated abscess or fluid collection. Ileus in a few adjacent small bowel loops, no obstruction. No free air. Assessment & Plan Assessment 47 yo F with 12 days s/p ventral incisional hernia repair with [id number] intrabdominal abscess and associated ileus without obstruction. Plan: Admit to General Surgery. She will remain NPO overnight and started on IV zosyn for treatment of her intrabdominal abscess. We will discuss potential drainage of the abscess with interventional radiology in the morning. Any fluid will be sent for wound culture and ID consulted for antibiotic recommendations, course and management. She will remain on maintenance IV fluids overnight, pain medications as needed intravenously and tylenol. We will keep her TITO drain in for now. Resuscitation Status: CPR: Attempt Resuscitation Angela Rojo MD Apr 17, 2017 22:07
[2017-04-17] MEDS ORDERED: MetoCLOpramide 5 mg/mL 2 mL Inj IVPUSH PRN (22:35)
[2017-04-17] MEDS ORDERED: Ondansetron 2 mg/mL 2 mL Inj IVPUSH PRN (22:35)
[2017-04-17 23:41] VITALS: BP 152/98; PULSE 105; RESP 12; O2SAT 95
[2017-04-17] MEDS: HYDROmorphone 1 mg/mL Inj IVPUSH PRN (23:49)
[2017-04-17 23:55] VITALS: BP 164/100; PULSE 93; RESP 16; O2SAT 96
[2017-04-18] MEDS: Dextrose 5% Lactated Ringer's 1,000 ML IV SCH ×3 (00:09→23:34)
--- NOTE | 2017-04-18 00:11 | NUR ---
Admit Note Pt. arrived on floor ~2345. A&Ox3. Pt's peripheral IV intact and patent. Pt. complains of abdominal pain. IV Dilaudid given for pain. Will continue to monitor.
[2017-04-18] MEDS: Piperacillin-Tazo 3.375 Gm Inj 3.375 GM in Dextrose 5% Minibag Plus 50 ML IV SCH ×4 (00:30→15:28)
[2017-04-18] MEDS: HYDROmorphone 1 mg/mL Inj IVPUSH PRN (00:46)
[2017-04-18] MEDS: HYDROmorphone 0.5 mg/0.5 mL iSecure Syringe IVPUSH PRN ×7 (03:34→22:05)
[2017-04-18 06:58] LABS: BASOPHILS % (AUTO) 0.2 % (0-3); EOSINOPHILS % (AUTO) 3.7 % (0-5); MONOCYTES % (AUTO) 6.9 % (4-12); Mean Corpuscular Hemoglobin 31.9 pg (27.0-35.0); Mean Corpuscular Volume 91.9 fL (81-100); NEUTROPHILS % (AUTO) 69.5 % (40-74); Platelet Count 294 bil/L (150-400)
[2017-04-18 07:00] VITALS: BP 161/99; PULSE 94; RESP 18; O2SAT 92
[2017-04-18 08:19] VITALS: BP 127/79; PULSE 85; RESP 18; O2SAT 94
[2017-04-18] MEDS: Vancomycin Dose per Pharmacist XX SCH (08:30)
--- NOTE | 2017-04-18 09:00 | DRSVH ---
PROCEDURE: CT ABDOMEN AND PELVIS WITH CONTRAST ([id number]) INDICATIONS: abd pain, recent hernia repair TECHNIQUE: After the administration of intravenous contrast, 5 mm thick sections acquired from the diaphragm to the symphysis. 5 mm coronal and sagittal reformats were acquired. For radiation dose reduction, the following was used: automated exposure control, adjustment of mA and/or kV according to patient siz e. COMPARISON: Outside Film, CT, CT ABD PELVIS W CON, 11/11/2016, 21:54. FINDINGS: Image quality: Excellent. ABDOMEN: Lung bases: Lung bases are clear. Heart size is normal. Solid organs: Liver is markedly enlarged. The spleen is borderline enlarged. Gallbladder is unremark able. Biliary system is non dilated. Pancreas enhances normally. No adrenal nodules. Kidneys demo nstrate normal size and enhancement, without hydronephrosis. Peritoneum and bowel: Bowel loops are nonobstructed. There is mild appearance of scattered thickened small bowel loops. There is a 57 mm AP by 95 mm transverse fluid collection within the intra-abdomin al wall. A subcutaneous surgical drain is noted. Minimal scattered free fluid is noted within the low er abdomen and pelvis. Gastric surgical changes are noted. Nodes and vessels: No retroperitoneal or mesenteric adenopathy by size criteria. Aorta and inferior vena cava are normal in size. Miscellaneous: No ventral hernias. PELVIS: Genitourinary: Bladder wall thickness is normal. Miscellaneous: No inguinal hernias or adenopathy. Bones: No suspicious bony lesions. No vertebral body compression fractures. IMPRESSION: 1. Anterior abdominal fluid collection most suggestive of abscess. 2. Scattered free fluid within the abdomen pelvis. In addition, there is adjacent mildly thickened sm all bowel loops, likely related to secondary inflammatory change. Dictated by: Hollie Roberts M.D. on 04/18/2017 at 8:55 Approved by: Hollie Roberts M.D. on 04/18/2017 at 8:58
[2017-04-18] MEDS: Vancomycin Inj 1,250 MG in 0.9% Sodium Chloride 250 ML IV SCH ×2 (09:44→20:22)
--- NOTE | 2017-04-18 10:10 | PCM.PNSURG ---
Subjective Date of Service: Apr 18, 2017 Date of Service: Apr 18, 2017 Visit Information: Reason for Visit Intra Abdominal Abscess Surgery/Surgery Date Post-Op Day # 13 Date of Admission: Apr 17, 2017 at 23:08 Hospital Day # 1 Subjective: Yeny endorses continued abdominal discomfort but this has been well controlled with IV pain medication as needed. She understands the plan and has been started on IV zosyn and vancomycin. She remains NPO for CT guided IR drain placement today. Afebrile, white count normalized, vital signs stable. Objective Vital Sign- Last 8 Hours Date Time Temp Pulse Resp B/P Pulse Ox O2 Delivery O2 Flow Rate FiO2 04/18/17 08:19 36.7 85 18 127/79 94 Room Air 04/18/17 07:00 36.7 94 18 161/99 92 Room Air Intake and Output- Last 8 Hour 04/18/17 Cumulative From/Thru 06:58 04/17/17 18:48 - 04/18/17 05:39 Intake Total 423 ml 423 ml Balance 423 ml 423 ml IV Total 423 ml 423 ml General: Alert, Oriented X3, Cooperative, No Acute Distress Lungs: Other (Breathing comfortably on room air.) Abdomen: Soft, Other (Tender in epigastrium. Midline incision well healed without erythema, fluctuance or dehiscence. TITO drain with serous output. No rebound or guarding.) Neuro: Grossly Neurologically Intact Result Diagram: 04/18/17 0650 04/17/171926 Assessment & Plan Impression 47 yo F with 12 days s/p ventral incisional hernia repair with [id number] abscess overlying the mesh requiring CT guided IR drainage today and continuing antibiotic therapy. Problems: Plan - NPO - CT guided IR drain placement, abscess fluid cultures, stat coags ordered for procedure today - May resume diet after procedure - Continue zosyn and vancomycin empirically until we can narrow based on abscess fluid culture results and speciation - Transition to oral pain medication after procedure (tylenol, oxycodone prn, and discontinue dilaudid), prn dilaudid okay for now and tylenol - Ambulate TID - TITO drain to remain for now - Will discontinue mIVF after procedure and taking adequate oral fluids - Requires ongoing inpatient hospitalization for IR drainage of abscess and IV antibiotics Resuscitation Status: CPR: Attempt Resuscitation Angela Rojo MD Apr 18, 2017 10:10
[2017-04-18 10:55] LABS: INR 0.9 ratio
[2017-04-18] MEDS ORDERED: HALO2TAB PO (11:03)
[2017-04-18] MEDS ORDERED: RIZA5TAB34 PO (11:03)
[2017-04-18] MEDS ORDERED: FOLI200T12 PO (11:05)
[2017-04-18] MEDS ORDERED: fentaNYL-PF 50 mCg/mL 2 mL Inj ONE ×2 (11:30→12:17)
--- NOTE | 2017-04-18 12:02 | NUR ---
CT DRAINAGE Patient left for CT guided drainage of abdomen abscess at 1130. Vancomycin given this am, last pain control 1mg IVP Dilaudid at 1015, and Antonietta accompanied patient to CT. Addendum: 04/18/17 at 1510 by BG ORTEGA RN RET[place] [facility] [place] [facility] [place] recovery at [facility] from CT gilded "T" drain placement for abdomen abbess. Left anterior side " T" drain draining serous fluid, patient c/o 7/10 pain given 1mg IVP Dilaudid that brought pain level down to 4/10. Orders to resume PO intake, patient has ordered dinner and drinking water and juice without issue. SCD's applied, patient is on room air and O2 sat @94%, she states she has been Dx with sleep apnea, but does not have CPAP machine. Will apply pulse ox tonight.
[2017-04-18] MEDS: fentaNYL-PF 50 mCg/mL 2 mL Inj IVPUSH SCH ×2 (13:10→13:15)
--- NOTE | 2017-04-18 16:22 | NUR ---
Social Work: Initial Assessment/Multidisciplinary Rounds D: EMR reviewed. Please see Initial Assessment linked to this note for more information. Pt is a 47 year old female admitted [facility] - no readmit score assigned - for intra abdominal abscess per H&P. Pt's insurance is [employer] and [facility] Medicaid. PCP is Raffy Moreland MD. Pt discussed in multidisciplinary rounds and is not medically stable for discharge at this time, anticipate 1-2 more days. No SW needs identified in multidisciplinary rounds, no MD orders received. SW will continue to follow. SW met with pt at bedside to conduct initial assessment. Pt was alert and oriented x3. SW explained role and wrote phone number on white board. SW provided [facility] Discharge Planning Checklist and encouraged pt to contact SW for any discharge planning questions. Pt gave verbal consent to contact pt's Mitch Morse [phone] for discharge planning. Pt is living in [place] with her father in a single-story home with 2 steps to enter. Pt is independent with all ADLs at baseline. Pt's father will available to assist her after this admission. Pt's step-mother was with pt at bedside ([place] [phone]) who confirmed either she or pt's father will provide pt transport home at time of discharge. Pt does not own or use any DME. Pt does not drive. Pt has no HH or SNF history. Pt has no LTC or VA benefits. SW requested copy of pt's DPOA. Pt reports DPOA is ex- Han Moreno. SW asked if pt had any questions or concerns about discharge - pt denies and concerns at this time but agreeable to call if questions/concerns arise. SW will continue to follow for possible needs at time of discharge. A: Pt who is independent at baseline and has the capacity for self-care. P: Pt anticipated to discharge home with father or step-mother to transport via POV. No SW needs identified at this time, no MD orders received. SW will continue to follow for needs until time of discharge. LAVON Escobar Addendum: 04/18/17 at 1630 by DAREK BOURNE Amended: Links added.
[2017-04-18 17:11] VITALS: BP 147/95; PULSE 80; RESP 18; O2SAT 95
[2017-04-18] MEDS ORDERED: INS7030 SUBQ (20:09)
[2017-04-18] MEDS ORDERED: AGM875T PO (20:09)
[2017-04-18 20:40] VITALS: BP 152/87; PULSE 82; RESP 16; O2SAT 93
[2017-04-19 00:30] VITALS: BP 152/90; PULSE 86; RESP 16; O2SAT 95
[2017-04-19] MEDS: HYDROmorphone 0.5 mg/0.5 mL iSecure Syringe IVPUSH PRN ×3 (00:34→05:22)
[2017-04-19] MEDS: Piperacillin-Tazo 3.375 Gm Inj 3.375 GM in Dextrose 5% Minibag Plus 50 ML IV SCH ×2 (00:35→07:57)
[2017-04-19 05:20] VITALS: BP 105/70; PULSE 82; RESP 16; O2SAT 93
--- NOTE | 2017-04-19 06:23 | PCM.PNSURG ---
Subjective Date of Service: Apr 19, 2017 Date of Service: Apr 19, 2017 Visit Information: Reason for Visit Intra Abdominal Abscess Date of Admission: Apr 17, 2017 at 23:08 Objective Vital Sign- Last 8 Hours Date Time Temp Pulse Resp B/P Pulse Ox O2 Delivery O2 Flow Rate FiO2 04/19/17 00:30 36.9 86 16 152/90 95 Room Air Intake and Output- Last 8 Hour 04/19/17 Cumulative From/Thru 06:58 04/17/17 18:48 - 04/19/17 05:26 Intake Total 1282 ml 4005 ml Output Total 1035 ml Balance 1282 ml 2970 ml Intake Oral 1200 ml IV Total 1282 ml 2805 ml Output Urine Total 800 ml Drainage Total 235 ml # Voids 0 Result Diagram: 04/18/17 1030 04/17/17 1927 Assessment & Plan Impression 47 yo F with 12 days s/p ventral incisional hernia repair with [id number] abscess overlying the mesh requiring CT guided IR drainage today and continuing antibiotic therapy. Problems: Plan - Regular diet today - Continue zosyn and vancomycin until we can narrow based on abscess fluid culture results and speciation - Oral pain medication: tylenol prn, oxycodone prn - Ambulate TID - TITO drain to remain for now Resuscitation Status: CPR: Attempt Resuscitation Deal,Angela Mosher MD Apr 19, 2017 06:23
[2017-04-19] MEDS: Vancomycin Dose per Pharmacist XX SCH (08:30)
--- NOTE | 2017-04-19 09:48 | DRSVH ---
PROCEDURE: 1. Percutaneous CT guided drainage of abdominal abscess. 2. Conscious sedation time 25 minutes. INDICATIONS: pelvic abscess COMPARISON: [facility], CT, CT ABD PELVIS W CON, 04/17/2017, 22:08. None. TECHNIQUE: Informed, written consent from the patient was obtained prior to the procedure. Patient was brought to the angiography suite, and conscious sedation was administered intravenously by halfway staff, while continuous cardiorespiratory monitoring was performed. Maximal sterile barrier technique, hand hygiene, skin preparation, and sterile ultrasound technique (if ultrasound was utilized) was followed. A mask, sterile gown, sterile gloves, a large sterile sheet, hand hygiene, and 2% chlorhexidine or iodine was utilized for skin antisepsis. Income [employer] CT imaging of the abdominal abscess was performed with patient in supine positioning. The appropriate cutaneous site for percutaneous access to the abscess was marked, prepped and draped sterilely, and infused with lidocaine. Under CT guidance, an 18 gauge needle was advanced into the abscess cavity, through which an 035 Amplatz was advanced. Sequential dilators were placed, followed by advancement of an 8 Martiniquais pigtail drainage catheter, which was advanced into the abscess cavity. Roughly 30 cc of serosanguineous mater ial were aspirated, a sample of which was sent to laboratory for analysis. Catheter was then fastened to the skin surface. FINDINGS: At the conclusion of the procedure, the pigtail drainage catheter is within the abscess cavity, which is decreased in size. IMPRESSION: 8 Martiniquais percutaneous pigtail drainage of abdominal abscess. Dictated by: Hollie Roberts M.D. on 04/19/2017 at 9:43 Approved by: Hollie Roberts M.D. on 04/19/2017 at 9:46
[2017-04-19] MEDS: Dextrose 5% Lactated Ringer's 1,000 ML IV SCH (12:04)
--- NOTE | 2017-04-19 12:28 | PCM.DISURG ---
Surgical Discharge Instruction Date of Service Apr 19, 2017 Dates of Hospitalization Date of Hospital Admission Apr 17, 2017 at 23:08 Providers Admitting Physician: You Colin MD Primary Care Physician: Raffy Moreland MD Attending Physician: You Colin MD Discharge Diagnosis Discharge Diagnosis Surgical site seroma Diet Discharge Diet: No restrictions Activity Discharge Activity-General: No restrictions Dressing and Incisional Care Dressing Care: Keep dressing clean, dry & intact, Change soiled dressing (as needed.) Hygiene: May shower Additional Instructions Discharge Instructions Please call our clinic when the drain output is less than 30cc for two consecutive days over 24 hours. We will have you come in to have the drain removed. Follow Up Plan Mid-level Provider (F9): Lorenzo Matta PA-C Follow-up appointment: Weeks (1-2) Call your provider for: Fever, Increasing abdominal pain, Discharge @ incision , pus discharge Angela Rojo MD Apr 19, 2017 12:28
[2017-04-19] MEDS ORDERED: IBUP-1827 PO (12:32)
[2017-04-19] MEDS ORDERED: OXYC-530 PO (12:32)
--- NOTE | 2017-04-19 12:40 | PCM.DC.SUR ---
Discharge Summary Date of Service: Apr 19, 2017 Date of Hospital Admission: Apr 17, 2017 at 23:08 Date of Discharge: Apr 19, 2017 Diagnosis at Time of Discharge Surgical site seroma Problems: Brief History and Physical: Yeny Moreno is a 47 year old female known to the General Surgery service who underwent a ventral incisional hernia repair on 04/05/[address] Beckham and discharged home on 04/07/2017 with a TITO drain. She was seen in clinic on Wednesday this week because she thought her TITO drain could be removed but it needed a little longer. She has had two consecutive days now of 25cc/24hrs in the drain, just serosanguinous fluid. She denies any drainage from her midline abdominal wound. She is still using oxycodone and aleve but has stopped taking tylenol.She reports that she had been doing well until waking up this morning with worse band like epigastric discomfort with associated chills and nausea. She reports subjective fevers but has been taking her temperature without it rising above 99 degrees F. She has been tolerating a regular diet but her appetite was slightly less today given the increased pain. Because her pain changed today she presented to the ED for further evaluation. On arrival, she is afebrile, non tachycardic, normotensive, and has a mildly elevated WBC of 12.5. Her midline incision is well healed and intact without concerns for dehiscence, drainage, cellulitis or erythema. General Surgery was consulted for additional recommendations given the benign appearance of her wound and abdominal exam with isolated mild leukocytosis. A CT scan was ordered demonstrating a 12x10 fluid collection anterior to the mesh. Consultants: Interventional Radiology Hospital Course: Yeny was admitted and started on empiric antibiotic treatment for possible surgical site infection with the presence of a fluid collection anterior to the mesh. The following day she underwent a CT guided IR placed drain with gram stain identifying no organisms and the fluid appearing to be serous and consistent with a seroma. This was not an abscess and her antibiotics were stopped. The seroma will be treated with the IR placed drain until her output is less than 30cc over 24 hours for two consecutive days. She tolerated a regular diet, had excellent pain control on oral medications, and felt comfortable with discharge home. She will call us when the drain output is appropriate to pull the drain, otherwise we will see her in clinic for follow up in 1-2 weeks. No antibiotics were prescribed at discharge. Her anterior TITO drain from her original surgery was removed prior to discharge. Physical Exam the Day of Discharge: GEN: no distress, comfortable, conversant HEENT: Moist mucous membranes CV: RRR, no murmurs PULM: Breathing comfortably on room air ABD: Soft, mildly tender in the epigastrium, no distension, IR drain well secured draining serous fluid EXT: wwp PSYCH: mood and affect appropriate Disposition: Home Clonazepam (Clonazepam) 0.5 Mg Tablet 0.5 MG PO TID PRN PRN For Anxiety ( Reported) Fluoxetine (Fluoxetine) 40 Mg Capsule 40 MG PO DAILY (Reported) Folic Acid/Multivit-Minerals (Women's Multivitamin Gummies) 200 Mcg Tab.chew 400 MCG PO DAILY (Reported) Haloperidol (Haloperidol) 2 Mg Tablet 2 MG PO BID (Reported) Ibuprofen (Ibuprofen) 600 Mg Tablet 600 MG PO QID PRN PRN For Pain Insulin Human Isophan/Regular (HUMulin 70/30 U100 Insulin Vial) 100 Unit/Ml Ml 60 UNIT SUBQ ACHS (Reported) Oxcarbazepine (Oxtellar Xr) 300 Mg Tab.er.24h 1,200 MG PO HS (Reported) Polyethylene Glycol 3350 (Miralax) 17 Gm Powd.pack 17 GM PO DAILY PRN PRN For Constipation Prazosin (Prazosin) 2 Mg Capsule 2 MG PO BID (Reported) Quetiapine Fumarate (Seroquel) 400 Mg Tablet 400 MG PO BID (Reported) Rizatriptan (Maxalt) 5 Mg Tablet 5 MG PO QID PRN PRN Headache (Reported) oxyCODONE (oxyCODONE) 5 Mg Tablet 5-10 MG PO Q4H PRN PRN For Severe Pain Angela Rojo MD Apr 19, 2017 12:40
--- NOTE | 2017-04-19 15:59 | NUR ---
DISCHARGE Patient's TITO drain was removed by surgery PA. Patient was taught by this nurse and surgery PA on how to drain t drain that she is discharging with. Instructed about how to cover dressing when showering and instructions for continuing to measure drainage output and when to contact surgery clinic for follow up appointment. IV was removed from right forearm with catheter intact. Dressing applied. Patient got dressed independenly. Abdominal pain and discomfort was relieved with oxycodone 10mg. Patient given hard copy Rx to fill. Ambulated off unit to family member's vehicle. Left with all belongings.
[2017-04-19] MEDS ORDERED: Vancomycin Serum Trough XX ONE (20:30)
== END 2017-04-19 13:50 | disposition home or self-care (01) | DRG 921 ==
LOC: SED 18:24 → OBSVTOIN 23:08 → OSC 23:08
PROVIDERS: ADMIT Student in an Organized Health Care Education/Training Program; ATTEND Student in an Organized Health Care Education/Training Program
PROC: 0W9G30Z Drainage of Peritoneal Cavity with Drainage Device, Percutaneous Approach (ICD-10-PCS; principal; 2017-04-19)
DX: M96.843 Postprocedural seroma of a musculoskeletal structure following other procedure (principal); F41.9 Anxiety disorder, unspecified; J45.909 Unspecified asthma, uncomplicated